=== PATIENT | female | born 1945 | race Caucasian/White ===

== ENCOUNTER 2018-03-03 11:41 | Emergency (ER) | payer MEDICARE ==
[2018-03-03] MEDS ORDERED: Aspirin 81 mg CHEW TAB* 81 MG TAB.CHEW PO ONE (12:12)
--- NOTE | 2018-03-03 12:14 | ED ---
HPI Chest Pain - HPI Summary HPI Summary: This patient is a 73 year old F presenting to [facility] accompanied by her daughter with a chief complaint of achy and intermittently sharp chest pain since 09:00 this morning. Pain is 4/10 in severity. Reports recent cold with chills, body aches, and nonproductive cough. Patient denies fever and lower extremity pain and swelling. Denies history of similar pain. Patient took 81mg of ASA this morning. - History of Current Complaint Chief Complaint: EDChestPainROMI Time Seen by Provider: 03/03/18 12:05 Hx Obtained From: Patient Onset/Duration: Started Hours Ago, Still Present Time of Onset: 09:00 Timing: Constant Current Severity: Moderate Pain Intensity: 4 Pain Scale Used: 0-10 Numeric Chest Pain Radiates: No Character: Dull/Aching, Sharp/Stabbing Aggravating Factor(s): Nothing Alleviating Factor(s): Nothing Associated Signs and Symptoms: Positive: Chest Pain, Chills, Nonproductive Cough. Negative: Fever, Calf Pain/Swelling - Allergy/Home Medications Allergies/Adverse Reactions: Allergies Allergy/AdvReac Type Severity Reaction Status Date / Time No Known Allergies Allergy Verified 03/03/18 11:47 Home Medications: Home Medications Acyclovir* [Zovirax 400 MG TAB*] 400 mg PO TID PRN 03/03/18 [History Confirmed 03/03/18] Albuterol HFA INHALER* [Ventolin HFA Inhaler*] 2 puff INH Q4H PRN 03/03/18 [ History Confirmed 03/03/18] Anastrozole (NF) [Arimidex (NF)] 1 mg PO DAILY 03/03/18 [History Confirmed 03/03] Aspirin [Adult Aspirin] 81 mg PO DAILY 03/03/18 [History Confirmed 03/03/18] Atorvastatin* [Lipitor 80 MG*] 80 mg PO DAILY 03/03/18 [History Confirmed ] Ergocalciferol CAP* [Drisdol CAP*] 50,000 unit PO Q7D 03/03/18 [History Confirmed 03/03/18] Lisinopril 10 mg PO DAILY 03/03/18 [History Confirmed 03/03/18] Propylene Glycol/Peg 400/Pf [Systane 0.3-0.4% Eye Drop] 1 drop BOTH EYES BID PRN 03/03/18 [History Confirmed 03/03/18] Ranitidine TAB (NF) [Zantac TAB (NF)] 150 mg PO BID 03/03/18 [History Confirmed 03/03/18] Temazepam 15 mg PO BEDTIME 03/03/18 [History Confirmed 03/03/18] Ubidecarenone [Coenzyme Q-10] 200 mg PO DAILY 03/03/18 [History Confirmed ] diphenhydrAMINE HCl [Benadryl Allergy] 25 - 50 mg PO Q4HR PRN 03/03/18 [History Confirmed 03/03/18] PMH/Surg Hx/FS Hx/Imm Hx Endocrine/Hematology History: Denies: Hx Diabetes Cardiovascular History: Reports: Hx Hypercholesterolemia, Hx Hypertension, Other Cardiovascular Problems/Disorders - PVCs - Cancer History Cancer Type, Location and Year: breast CA Hx Chemotherapy: No Hx Radiation Therapy: Yes - Surgical History Surgery Procedure, Year, and Place: LEFT LUMPECTOMY. appendectomy Infectious Disease History: No Infectious Disease History: Denies: Traveled Outside the [place] in Last 30 Days - Family History Known Family History: Positive: Hypertension - Social History Occupation: Retired Alcohol Use: Rare Substance Use Type: Reports: None Smoking Status (MU): Never Smoked Tobacco Review of Systems Positive: Chills. Negative: Fever Positive: Chest Pain Positive: Cough Positive: Myalgia. Negative: Edema All Other Systems Reviewed And Are Negative: Yes Physical Exam - Summary Physical Exam Summary: VITAL SIGNS: Reviewed. GENERAL: Patient is a well-developed and nourished female who is lying comfortable in the stretcher. Patient is not in any acute respiratory distress. HEAD AND FACE: No signs of trauma. No ecchymosis, hematomas or skull depressions. No sinus tenderness. EYES: PERRLA, EOMI x 2, No injected conjunctiva, no nystagmus. EARS: Hearing grossly intact. Ear canals and tympanic membranes are within normal limits. MOUTH: Oropharynx within normal limits. NECK: Supple, trachea is midline, no adenopathy, no JVD, no carotid bruit, no c- spine tenderness, neck with full ROM. CHEST: Symmetric, no tenderness at palpation LUNGS: Clear to auscultation bilaterally. No wheezing or crackles. CVS: Regular rate and rhythm, S1 and S2 present, no murmurs or gallops appreciated. ABDOMEN: Soft, non-tender. No signs of distention. No rebound no guarding, and no masses palpated. Bowel sounds are normal. EXTREMITIES: FROM in all major joints, no edema, no cyanosis or clubbing. NEURO: Alert and oriented x 3. No acute neurological deficits. Speech is normal and follows commands. SKIN: Dry and warm Triage Information Reviewed: Yes Vital Signs On Initial Exam: Initial Vitals Temp Pulse Resp BP Pulse Ox 98.6 F 102 14 157/76 97 03/03/18 11:43 03/03/18 11:43 03/03/18 11:43 03/03/18 11:43 03/03/18 11:43 Vital Signs Reviewed: Yes Diagnostics - Vital Signs Vital Signs Temp Pulse Resp BP Pulse Ox 03/03/18 11:43 98.6 F 102 14 157/76 97 - Laboratory Result Diagrams: 03/03/18 12:14 03/03/18 12:14 Lab Statement: Any lab studies that have been ordered have been reviewed, and results considered in the medical decision making process. - Radiology CXR Radiology Interpretation Completed By: Radiologist - HYPERINFLATION. NO ACTIVE CARDIOPULMONARY DISEASE. ED Physician has reviewed this report. - EKG 1155 Cardiac Rate: NL - 93 BPM EKG Rhythm: Sinus Rhythm EKG Interpretation: no ST elevations Chest Pain Course/Dx - Course Assessment/Plan: This patient is a 73 year old F presenting to [facility] accompanied by her daughter with a chief complaint of achy and intermittently sharp chest pain since 09:00 this morning. Pain is 4/10 in severity. Reports recent cold with chills, body aches, and nonproductive cough. Patient denies fever and lower extremity pain and swelling. Denies history of similar pain. Patient took 81mg of ASA this morning. Blood work without any significant abnormality except potassium level of 3.4, magnesium is 1.5 and glucose is 112. Troponin is 0.01. In the ED course the patient was given aspirin, the patient was given potassium for the hypokalemia and magnesium for the hypomagnesemia. Since arrival the patient has remained asymptomatic. The patient denies any chest pain. Denies any shortness of breath or palpitations. I have no suspicion for PE since the patient is not hypoxic or tachycardic. Also the patient is asymptomatic. Second troponin is also 0.01. Heart score is equal to 3. I discussed all the findings and test results with the patient. Patient was instructed to return to the emergency room immediately if any of the symptoms return or worsens. Plan of care was discussed with the patient and understands and agrees. All questions were answered at patient satisfaction. There were no further complaints or concerns. Lung exam before discharge: CTA B /L. Good air exchange. No wheezing or crackles heard. CVS: S1 and S2 present. No murmurs appreciated. Patient is alert and oriented x 3. Patient is hemodynamically stable. Patient will be discharged home with follow up PCP in the next 2-3 days - Chest Pain Differential Diagnosis/HQI/PQRI: Acute LA, ACS, Angina, CHF, Chest Wall, GI Disease, Lower Respiratory Infection - Diagnoses Provider Diagnoses: Atypical chest pain Discharge - Sign-Out/Discharge Documenting (check all that apply): Patient Departure - discharge - Discharge Plan Condition: Stable Disposition: HOME Prescriptions: Azithromycin TAB* [Zithromax TAB (Z-TRINA) 250 mg #6 tabs] 250 mg PO DAILY #4 tab Patient Education Materials: Chest Pain (ED) Forms: *Work Release Referrals: Stanley Dillon DO [Primary Care Provider] - 2 Days Additional Instructions: FOLLOW UP WITH YOUR PRIMARY CARE PROVIDER WITHIN ONE WEEK FOR HIGH BLOOD PRESSURE NOTED TODAY. RETURN TO EMERGENCY ROOM FOR ANY WORSENING OR NEW SYMPTOMS. - Billing Disposition and Condition Condition: STABLE Disposition: Home - Attestation Statements Document Initiated by Andrewe: Yes Documenting Scribe: Tiffany Freire Provider For Whom Kendal is Documenting (Include Credential): Ernie Flores MD Scribe Attestation: Tiffany Watt, scribed for Ernie Flores MD on 03/03/18 at 1841. Scribe Documentation Reviewed: Yes Provider Attestation: The documentation as recorded by the Tiffany yi accurately reflects the service I personally performed and the decisions made by me, Ernie Flores MD
[2018-03-03 12:25] LABS: ABS Basophils 0.1 10^3/ul (0-0.2); ABS Eosinophils 0 10^3/ul (0-0.6); ABS Lymphocytes 0.8 10^3/ul (1.0-4.8); ABS Monocytes 0.6 10^3/ul (0-0.8); ABS Neutrophils 8.6 10^3/ul (1.5-7.7); ABS Nucleated RBC 0 10^3/ul; Eosinophil % 0.2 % (0-6); Hematocrit 36 % (35-47); Hemoglobin 12.1 g/dl (12.0-16.0); Lymphocyte % 7.6 % (25-47); Mean Corpuscular HGB Conc 34 g/dl (31-36); Mean Corpuscular Hemoglobin 29 pg (27-31); Mean Corpuscular Volume 86 fL (80-97); Mean Platelet Volume 7.7 um3 (7.4-10.4); Nucleated Red Blood Cells % 0; Platelet Count 214 10^3/ul (150-450); Red Blood Count 4.21 10^6/ul (4.00-5.40); Red Cell Distribution Width 14 % (10.5-15)
[2018-03-03 12:33] LABS: INR 0.98 (0.77-1.02)
[2018-03-03 12:43] LABS: EGFR Non-African American 100.2 (>60)
--- NOTE | 2018-03-03 13:08 | RAD ---
HISTORY: CP COMPARISONS: None VIEWS: 2: Frontal and lateral views of the chest. FINDINGS: CARDIOMEDIASTINAL SILHOUETTE: The cardiomediastinal silhouette is normal. WESLY: The wesly are normal. PLEURA: The costophrenic angles are sharp. No pleural abnormalities are noted. LUNG PARENCHYMA: There is hyperinflation with flattening of the diaphragm and expansion of the AP diameter of the chest. ABDOMEN: The upper abdomen is clear. There is no subphrenic gas. BONES AND SOFT TISSUES: No bone or soft tissue abnormalities are noted. Surgical clips are noted overlying the left chest. OTHER: None. IMPRESSION: HYPERINFLATION. NO ACTIVE CARDIOPULMONARY DISEASE.
[2018-03-03] MEDS ORDERED: Potassium Chlor TAB* 20 MEQ TAB.ER PO ONE (14:46)
[2018-03-03] MEDS ORDERED: Magnesium Oxide TAB* 400 MG PO ONE (15:09)
[2018-03-03 16:06] LABS: Urine Appearance Clear; Urine Blood 2+ (Negative); Urine Color Yellow; Urine Ketones Negative (Negative); Urine Protein Negative (Negative); Urine Red Blood Cell 2+(6-10/hpf) (Absent); Urine Specific Gravity 1.011 (1.010-1.030); Urine Urobilinogen Negative (Negative); Urine White Blood Cell Trace(0-5/hpf) (Absent)
[2018-03-03] MEDS ORDERED: Acetaminophen TAB* 325 MG PO ONE (16:33)
[2018-03-03] MEDS ORDERED: Azithromycin TAB* 250 MG PO ONE (16:34)
[2018-03-03 16:41] VITALS: BP 130/77
== END 2018-03-03 16:46 | disposition home or self-care (01) ==
LOC: ED 11:41
DX: R07.89 Other chest pain (principal); E83.42 Hypomagnesemia; E87.6 Hypokalemia; I10 Essential (primary) hypertension; E78.00 Pure hypercholesterolemia, unspecified; Z79.899 Other long term (current) drug therapy
CPT/HCPCS: 36415; 71046; 80053; 81003; 81015; 82550; 82553; 83605; 83735; 83880; 84443; 84484; 85025; 85610; 85730; 86140; 87086; 93005; 99284; A9270-GY

== ENCOUNTER 2018-05-30 07:50 | Emergency (ER) | payer MEDICARE ==
--- OUTSIDE RECORDS SUMMARY | 2018-05-30 07:56 | XMS REPORT | Continuity of Care Document ---
:1945 External Reference #:[id number] Author Name Stanley Dillon D.O. Address [address] [place] [address] Care Team Providers Name Role Phone HCP/LW on file Primary Care Physician Unavailable Payers Type Date Identification Numbers Payment Provider Subscriber Policy Number: [id number] [employer] Ppo Greta Hurtado Group Number: [id number] [address] PayID: [id number] [place] [address] Advance Directives Description No Information Available Problems Date Description Provider Status Onset: 08/31/2017 Genital herpes simplex Stanley Dillon D.O. Active Onset: 08/31/2017 Insomnia Stanley Dillon D.O. Active Onset: 08/31/2017 Chronic obstructive lung disease Stanley Dillon D.O. Active Onset: 08/31/2017 Personal history of primary malignant Stanley Dillon D.O. Active neoplasm of breast Onset: 08/31/2017 Essential hypertension Stanley Dillon D.O. Active Onset: 12/12/2017 Hyperlipidemia Delma Chowdhury PA Active Onset: 12/26/2017 Benign hematuria Delma Chowdhury PA Active Onset: 01/04/2018 Microscopic hematuria Delma Chowdhury PA Active Family History Date Family Member(s) Problem(s) Comments Father Asthma : (1993) Father due to Heart w/Pulmonary Edema (age 73 Years) Problems : (1999) Mother due to Esophagus (age 78 Years) Cancer Siblings 3 Brothers Siblings 2 Sisters First Brother Alcoholism First Brother Obesity First Brother Glaucoma Maternal Grandmother Stomach Cancer Social History Type Date Description Comments Sex Unknown Education Highest Level Completed College Marital Status 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 Abuse No Concern Of Abuse Tobacco Use Start: Unknown Denies Cigarette Use ETOH Use Rarely consumes alcohol Recreational Drug Use Denies Drug Use Tobacco Use Start: Unknown Non Smoker Smoking Status Reviewed: 05/24/18 Non Smoker Sun Exposure Does not use sunscreen Seat Belt/Car Seat Seat Belt Use - Yes Smoke Alarms Yes smoke alarm Currently Active Patient is currently not sexually active Age [address] [place] 22 Years Old # Partners in a Lifetime Partners 1-5 Additional Info Sexual preference is men Allergies, Adverse Reactions, Alerts Description No Known Drug Allergies Medications Medication Date Status Form Strength Qnty SIG Indications Ordering Provider Omeprazole 04/16/ Active Capsules 20mg 90cap 1 by mouth K21.[address] every day Mansoor Angel Bevespi 04/16/ Active Aerosol 9-4.8mcg/ 32.1g Inhale 2 Sopchak, Aerosphere 2018 Act m puffs by Stanley, mouth 2 times D.O. per day Atorvastatin 08/30/ Active Tablets 80mg 90tab 1 by mouth E78.2 [place], Calcium 2017 s every day Mansoor Angel Coenzyme Q-10 08/30/ Active Capsules 200mg qd Unknown 2017 Lisinopril 08/30/ Active Tablets 10mg 30tab 1 by mouth Silcoff, 2018 s every day Haleigh Bishop Vitamin D 08/30/ Active Capsules [id number] 12cap 1 cap by Elias, (Ergocalcifero 2017 s mouth weekly guillermo Bishop M.D. Systane 08/30/ Active Solution 0.4-0.3% prn use Unknown 2017 Benadryl 08/30/ Active Tablets 25mg 1-2 tab by Unknown Allergy 2018 mouth every 4 hours as needed seasonal allergies Acyclovir 08/30/ Active Tablets 400mg 14tab take 1 tablet A60.00 Santana, 2017 s by mouth 3 Stanley, times per day D.O. for 7 days as needed for outbreaks Ventolin HFA 08/30/ Active Aerosol 108(90Bas inhale 2 Unknown 2017 e) puffs by mcg/Act mouth every 4 hours as needed for bronchospasm Temazepam 08/30/ Active Capsules 15mg 90cap take one G47.00 Sopsamantha, 2017 s capsule by Stanley, mouth at D.O. bedtime as needed forsleep maximum daily dose=1 capsule Anastrozole 12/31/ Active Tablets 1mg 90tab 1 by mouth [email or web address] s every day for Stanley, breast cancer D.O. Azithromycin 03/03/ Hx Tablets 250mg 4tabs Take One Unknown 2018 - Tablet By 03/07/ Mouth Every 2017 Day Ranitidine HCL 08/31/ Hx Capsules 150mg 180ca 1 tab by K21.9 [email or web address] - ps mouth twice a Stanley, 04/16/ day as needed D.O. 2017 for heartburn Omeprazole 08/30/ Hx Capsules 20mg 1 by mouth Unknown 2017 - DR every day 2017 Aspirin Adult 08/30/ Hx Tablets DR 81mg 1 by mouth Unknown Low Strength 2018 - every day 2017 Immunizations CPT Code Status Date Vaccine Lot # [id number] Given 03/15/2018 Influenza Vaccine, Inactivated, Subunit, [id number] Adjuvanted, For [facility] [address] Given 01/04/2018 Adacel or Boostrix, TDaP [id number] Vital Signs Date Vital Result Comment 05/24/2018 4:45pm BP Systolic 142 mmHg BP Diastolic 86 mmHg Weight 135.00 lb 03/06/2018 3:12pm BP Systolic 142 mmHg BP Diastolic 70 mmHg Body Temperature 97.8 F Weight 133.00 lb 01/04/2018 11:46am BP Systolic 120 mmHg BP Diastolic 74 mmHg 12/12/2017 12:03pm BP Systolic 116 mmHg BP Diastolic 70 mmHg Weight 131.00 lb 08/31/2017 2:27pm BP Systolic 124 mmHg BP Diastolic 76 mmHg Height 65 inches 5'5" Weight 127.00 lb BMI (Body Mass Index) 21.1 kg/m2 Results Test Date Facility Test Result H/L Range Note Urine Culture And 03/03/2018 [facility] Urine Culture SEE RESULT 1 Sensitivities [phone] BELOW Laboratory test 03/03/2018 [facility] C Reactive 76.20 mg/L High < 8.01 finding [phone] Protein Urinalysis Profile 03/03/2018 [facility] Urine Color Yellow [phone] Urine Appearance Clear Urine Specific Floweree 1.011 N 1.010-1.030 Urine pH 6.0 N 5-9 Urine Urobilinogen Negative Negative Urine Ketones Negative Negative Urine Protein Negative Negative Urine Leukocytes 1+ Abnormal Negative Urine Blood 2+ Abnormal Negative Urine Nitrite Negative Negative Urine Bilirubin Negative Negative Urine Glucose Negative Negative Urine White Blood Cell Trace(0-5/hpf) Absent Urine Red Blood Cell 2+(6-10/hpf) Abnormal Absent Urine Bacteria Absent Absent Laboratory test 03/03/2018 [facility] TSH (Thyroid 0.45 mcIU/mL N 0.34-5.60 finding [phone] Stim Horm) CKMB 03/03/2018 [facility] CKMB ng/mL 1.4 ng/mL N 0.6-6.3 [phone] Laboratory test 03/03/2018 [facility] Magnesium 1.5 mg/dL Low 1.9- 2.7 finding [phone] Creatine Kinase(CK) 68 U/L N 10-223 Troponin-I (TnI) 0.00 ng/mL <0.04 Comp Metabolic Panel 03/03/2018 [facility] Sodium 139 mmol/L N 135- 145 [phone] Potassium 3.4 mmol/L Low 3.5-5.0 Chloride 102 mmol/L N 101-111 Co2 Carbon Dioxide 28 mmol/L N 22-32 Anion Gap 9 mmol/L N 2-11 Glucose 112 mg/dL High 70-100 Blood Urea Nitrogen 10 mg/dL N 6-24 Creatinine 0.59 mg/dL N 0.51-0.95 BUN/Creatinine Ratio 16.9 N 8-20 Calcium 9.5 mg/dL N 8.6-10.3 Total Protein 6.5 g/dL N 6.4-8.9 Albumin 4.1 g/dL N 3.2-5.2 Globulin 2.4 g/dL N 2-4 Albumin/Globulin Ratio 1.7 N 1-3 Total Bilirubin 0.60 mg/dL N 0.2-1.0 Alkaline Phosphatase 82 U/L N 34-104 Alt 16 U/L N 7-52 Ast 15 U/L N 13-39 Egfr Non- 100.2 >60 Egfr 121.2 >60 2 Laboratory test 03/03/2018 [facility] B-Type Natriuretic 67 pg/mL 3 finding [phone] Peptide BNP CBC Auto Diff 03/03/2018 [facility] White Blood Count 10.0 10^3/uL N 3.5-10. [phone] Red Blood Count 4.21 10^6/uL N 4.00-5.40 Hemoglobin 12.1 g/dL N 12.0-16.0 Hematocrit 36 % N 35-47 Mean Corpuscular Volume 86 fL N 80-97 Mean Corpuscular Hemoglobin 29 pg N 27-31 Mean Corpuscular HGB Conc 34 g/dL N 31-36 Red Cell Distribution Width 14 % N 10.5-15 Platelet Count 214 10^3/uL N 150-450 Mean Platelet Volume 7.7 um3 N 7.4-10.4 Abs Neutrophils 8.6 10^3/uL High 1.5-7.7 Abs Lymphocytes 0.8 10^3/uL Low 1.0-4.8 Abs Monocytes 0.6 10^3/uL N 0-0.8 Abs Eosinophils 0 10^3/uL N 0-0.6 Abs Basophils 0.1 10^3/uL N 0-0.2 Abs Nucleated RBC 0 10^3/uL Granulocyte % 85.9 % High 38-83 Lymphocyte % 7.6 % Low 25-47 Monocyte % 5.7 % N 0-7 Eosinophil % 0.2 % N 0-6 Basophil % 0.6 % N 0-2 Nucleated Red Blood Cells % 0 Laboratory test 03/03/2018 [facility] Partial 29.4 seconds N 26.0- 36.3 finding [phone] Thrombo Time PTT Inr/Protime 03/03/2018 [facility] Inr 0.98 N 0.77-1.02 [phone] Laboratory test 03/03/2018 [facility] Lactic Acid 1.4 mmol/L N 0.5- 2.0 4 finding [phone] Laboratory test 03/03/2018 [facility] Troponin-I 0.00 ng/mL <0.04 finding [phone] (TnI) Laboratory test 01/04/2018 [facility] Cytology SEE RESULT 5 finding [phone] BELOW Urine Culture And 12/20/2017 [facility] Urine Culture SEE RESULT 6 Sensitivities [phone] BELOW Urinalysis Profile 12/20/2017 [facility] Urine Color Yellow [phone] Urine Appearance Clear Urine Specific Floweree 1.021 N 1.010-1.030 Urine pH 5.0 N 5-9 Urine Urobilinogen Negative Negative Urine Ketones Negative Negative Urine Protein Negative Negative Urine Leukocytes 2+ Abnormal Negative Urine Blood 1+ Abnormal Negative Urine Nitrite Negative Negative Urine Bilirubin Negative Negative Urine Glucose Negative Negative Urine White Blood Cell 2+(11-20/hpf) Abnormal Absent Urine Red Blood Cell Trace(0-2/hpf) Absent Urine Bacteria Absent Absent Urine Calcium Oxalate Cryst Present Abnormal Absent Urinalysis Profile 12/18/2017 [facility] Urine Color Yellow [phone] Urine Appearance Clear Urine Specific Floweree 1.016 N 1.010-1.030 Urine pH 5.0 N 5-9 Urine Urobilinogen Negative Negative Urine Ketones Negative Negative Urine Protein Negative Negative Urine Leukocytes 2+ Abnormal Negative Urine Blood 2+ Abnormal Negative Urine Nitrite Negative Negative Urine Bilirubin Negative Negative Urine Glucose Negative Negative Urine White Blood Cell 1+(6-10/hpf) Abnormal Absent Urine Red Blood Cell Trace(0-2/hpf) Absent Urine Bacteria Absent Absent Urine Squamous Epithelial Cell Present Abnormal Absent Comp Metabolic Panel 12/18/2017 [facility] Sodium 141 mmol/L N 135- 145 [phone] Potassium 4.1 mmol/L N 3.5-5.0 Chloride 105 mmol/L N 101-111 Co2 Carbon Dioxide 30 mmol/L N 22-32 Anion Gap 6 mmol/L N 2-11 Glucose 99 mg/dL N 70-100 Blood Urea Nitrogen 14 mg/dL N 6-24 Creatinine 0.63 mg/dL N 0.51-0.95 BUN/Creatinine Ratio 22.2 High 8-20 Calcium 9.4 mg/dL N 8.6-10.3 Total Protein 6.2 g/dL Low 6.4-8.9 Albumin 4.1 g/dL N 3.2-5.2 Globulin 2.1 g/dL N 2-4 Albumin/Globulin Ratio 2.0 N 1-3 Total Bilirubin 0.40 mg/dL N 0.2-1.0 Alkaline Phosphatase 65 U/L N 34-104 Alt 9 U/L N 7-52 Ast 13 U/L N 13-39 Egfr Non- 93.2 >60 Egfr 112.7 >60 7 Lipid Profile (Trig/Chol/HDL) 12/18/2017 [facility] Triglycerides 111 mg/dL 8 [phone] Cholesterol 195 mg/dL 9 HDL Cholesterol 80.2 mg/dL 10 LDL Cholesterol 93 mg/dL 11 Laboratory test 12/18/2017 [facility] Hemoglobin A1c 5.5 % N 4.0-5.6 12 finding [phone] (Glyco HGB) Hepatitis C Antibody Nonreactive Nonreactive Urine Culture And 12/18/2017 [facility] Urine Culture SEE RESULT 13 Sensitivities [phone] BELOW Xray 12/18/2017 [facility] X-Ray, Chest, <pending> 14 2 Views 1 SEE RESULT BELOW Name: GRETA HURTADO : [address]: Ernie Flores MD Acct: [id number] Unit: [id number] AGE: 73 Location: ED Re03/03/18 SEX: F Status: DEP ER SPEC: [id number] ANAI: 03/03/[address] [facility] [address]: Ernie Flores MD REQ: [id number] RECD: 03/03/18 STATUS: LORENA PEREZ DR: Stanley Dillon DO _ SOURCE: URINE SPDESC: ORDERED: Urine Culture Procedure Result Reported Site Urine Culture Final 03/05/18- 830 ML No growth of clinically significant organisms * ML - Main Lab . END OF REPORT DEPARTMENT OF PATHOLOGY, [address] [place] [address] Dheeraj Sandoval M.D. Director [facility] # [id number] 2 Because ethnic data is not always readily available, this report includes an eGFR for both -Americans and non- Americans. The National Kidney Disease Education Program (NKDEP) does not endorse the use of the MDRD equation for patients that are not between the ages of 18 and 70, are , have extremes of body size, muscle mass, or nutritional status, or are non- or non-. According to the National Kidney Foundation, irrespective of diagnosis, the stage of the disease is based on the level of kidney function: Stage Description GFR(mL/min/1.73 m(2)) 1 Kidney damage with normal or decreased GFR 90 2 Kidney damage with mild decrease in GFR 60-89 3 Moderate decrease in GFR 30-59 4 Severe decrease in GFR 15-29 5 Kidney failure <15 (or dialysis) 3 >100 to <200 pg/mL: likely compensated congestive heart failure (CHF) 200 to 400 pg/mL: likely moderate CHF >400 pg/mL: likely moderate to severe CHF 4 [place] Severe Sepsis and Septic Shock Management Bundle Measure requires all lactic acids initially measuring >2.0 mmol/L be repeated. 5 SEE RESULT BELOW Name: GRETA HURTADO : [address]: Delma DWYER Acct: [id number] Unit: [id number] AGE: 72 Location: [facility] Re01/04/18 SEX: F Status: REG REF SPEC: [id number] ANAI: 01/04/18-[address] [facility] [address]: Delma DWYER REQ: [id number] RECD: 01/04/189472 STATUS: SOUT _ ORDERED: TP IMAGE ANALYS, HPV/Thin Prep COMMENTS: [id number] Negative for Intraepithelial lesion or Malignancy Date Time Test Result Flag (u) Normal Range 01/04/18 1236 @ HPV RNA Negative Negative @ @ The high-risk HPV types detected by the assay include: 16, @ 18, 31, 33, 35, 39, 45, 51, 52, 56, 58, 59, 66, and 68. A. Ectocervical/Endocervical Specimen Adequacy: Satisfactory of evaluation Transformation zone component cannot be definitely identified due to presence of atrophy or other hormonal changes Predominance of white blood cells Patient Information: HPV: High risk HPV RNA testing regardless of pap results. Actual Specimen Date: 01/04/18 Spec Date if unknown: >10 yrs ?: N Post Menopausal?: Y Hysterectomy?: N Previous Abnormal Pap Smears?:Y If Yes, enter Diagnosis: HPV Signed by and Reported on: PRAFUL Ovalle(ASCP) 1895 This Pap test was evaluated with the assistance of the Tu Closet Mi ClosetPrep Test Imaging System. Due to cytologic findings at the replenishment associate microscope, comprehensive manual rescreening by a Stoper may be required. The Pap Smear is a screening test designed to aid in the detection of premalignant and malignant conditions of the uterine cervix. It is not a diagnostic procedure and should not be used as the sole means of detecting cervical cancer. Both false- positive and false- negative reports do occur. Depending on your risk status, a Pap smear should be obtained and evaluated every 1-3 years. END OF REPORT DEPARTMENT OF PATHOLOGY, [address] [place] [address] Dheeraj Sandoval M.D. Director [facility] # [id number] 6 SEE RESULT BELOW Name: GRETA HURTADO : [address]: Delma DWYER Acct: [id number] Unit: [id number] AGE: 72 Location: [facility] Re12/22/17 SEX: F Status: REG REF SPEC: [id number] ANAI: 12/20/[address] [facility] [address]: Delma DWYER REQ: [id number] RECD: 12/22/17 STATUS: COMP _ SOURCE: URINE SPDESC: ORDERED: Urine Culture COMMENTS: [id number] Procedure Result Reported Site Urine Culture Final 12/23/17- 1414 ML No growth of clinically significant organisms * ML - Main Lab . END OF REPORT DEPARTMENT OF PATHOLOGY, [address] [place] [address] Dheeraj Sandoval M.D. Director [facility] # [id number] 7 Because ethnic data is not always readily available, this report includes an eGFR for both -Americans and non- Americans. The National Kidney Disease Education Program (NKDEP) does not endorse the use of the MDRD equation for patients that are not between the ages of 18 and 70, are , have extremes of body size, muscle mass, or nutritional status, or are non- or non-. According to the National Kidney Foundation, irrespective of diagnosis, the stage of the disease is based on the level of kidney function: Stage Description GFR(mL/min/1.73 m(2)) 1 Kidney damage with normal or decreased GFR 90 2 Kidney damage with mild decrease in GFR 60-89 3 Moderate decrease in GFR 30-59 4 Severe decrease in GFR 15-29 5 Kidney failure <15 (or dialysis) 8 Desirable: <150 Borderline High: 150-199 High: 200-499 Very High: >500 9 Desirable: <200 Borderline High: 200-239 High: >239 10 Low: <40 Desirable: 40-60 High: >60 11 Desirable: <100 Near Optimal: 100-129 Borderline High: 130-159 High: 160-189 Very High: >189 12 Therapeutic target for the treatment of diabetes mellitus patients is <7% HBA1C, and in selective patients <6.0%. Please refer to [place] [employer] diabetic care guidelines for further information. 13 SEE RESULT BELOW Name: GRETA HURTADO : [address]: Delma DWYER Acct: [id number] Unit: [id number] AGE: 72 Location: [facility] Re12/18/17 SEX: F Status: REG REF SPEC: [id number] ANAI: 12/18/[address]: Delma DWYER REQ: [id number] RECD: 12/18/17 STATUS: COMP _ SOURCE: URINE SPDESC: ORDERED: Urine Culture Procedure Result Reported Site Urine Culture Final 12/19/17- 1355 ML No growth of clinically significant organisms * ML - Main Lab . END OF REPORT DEPARTMENT OF PATHOLOGY, [address] [place] [address] Dheeraj Sandoval M.D. Director [facility] # [id number] 14 normal appearing lungs and heart Procedures Date Code Description Status 05/24/2018 50243 Omt 3 To 4 Body Regions Involved Completed 01/04/2018 00972 Destruction Of Skin Lesions Up To 14 Flat Completed Warts/Molluscum Contag 12/18/2017 61276 X-Ray Chest 2 V Completed 11/24/2017 18583641 Mammogram Completed 06/05/2014 87637640 Colonoscopy Completed Encounters Type Date Location Provider Dx Diagnosis Office Visit 04/16/2018 Main Office Stanley Dillon, K21.9 Gastro- esophageal 3:30p D.O. 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 Office Visit 03/06/2018 2:50p Main Office Delma Chowdhury J06.9 Acute upper PA respiratory infection, unspecified R07.9 Chest pain, unspecified Office Visit 01/04/2018 11:45a Main Office Delma Chowdhury PA I10 Essential (primary) hypertension Z12.4 Encounter for screening for malignant neoplasm of cervix B07.9 Viral wart, unspecified R31.1 Benign essential microscopic hematuria Z23 Encounter for immunization Z41.8 Encntr for oth proc for purpose oth [facility] Office Visit 12/12/2017 11:45a Main Office Delma Chowdhury PA Z85.3 Personal history of malignant neoplasm of breast I10 Essential (primary) hypertension E78.5 Hyperlipidemia, unspecified J44.9 Chronic obstructive pulmonary disease, unspecified L91.8 Other hypertrophic disorders of the skin Z85.828 Personal history of other malignant neoplasm of skin Office Visit 08/31/2017 2:00p Main Office Stanley Dillon, A60.00 Herpesviral D.O. infection of urogenital system, unspecified C44.310 Basal cell carcinoma of skin of unspecified parts of face K21.9 Gastro-esophageal reflux disease without esophagitis G47.00 Insomnia, unspecified H25.89 Other age-related cataract J44.9 Chronic obstructive pulmonary disease, unspecified Z85.3 Personal history of malignant neoplasm of breast I10 Essential (primary) hypertension Z00.01 Encounter for general adult medical exam w abnormal findings Z71.89 Other specified counseling Plan of Treatment No Information Available
[2018-05-30 08:06] VITALS: BP 143/75
[2018-05-30] MEDS ORDERED: Acetaminophen TAB* 325 MG PO ONE (08:33)
--- NOTE | 2018-05-30 09:50 | ED ---
Respiratory - HPI Summary HPI Summary: 73 yo WF presents with cough with yellow sputum x 3-4 days but has had URI sx for at least 1 week and worsening - History of Current Complaint Chief Complaint: UCRespiratory Stated Complaint: COUGH FEVER CHEST CONGESTION Time Seen by Provider: 05/30/18 08:08 Hx Obtained From: Patient Onset/Duration: Lasting Days, Lasting Weeks, Still Present Initial Severity: Moderate Current Severity: Moderate Pain Intensity: 6 Character: Cough (Nonproductive) Sputum Amount: Moderate Sputum Color: Yellow Aggravating Factor(s): URI Alleviating Factor(s): Nothing - Allergy/Home Medications Allergies/Adverse Reactions: Allergies Allergy/AdvReac Type Severity Reaction Status Date / Time No Known Allergies Allergy Verified 05/30/18 08:06 Home Medications: Home Medications Ibuprofen 400 mg PO ONCE PRN 05/30/18 [History Confirmed 05/30/18] Magnesium 1 tab PO DAILY 05/30/18 [History Confirmed 05/30/18] Omeprazole 20 mg PO DAILY 05/30/18 [History Confirmed 05/30/18] PMH/Surg Hx/FS Hx/Imm Hx Endocrine/Hematology History: Denies: Hx Diabetes Cardiovascular History: Reports: Hx Hypercholesterolemia, Hx Hypertension, Other Cardiovascular Problems/Disorders - PVCs Respiratory History: Reports: Hx Chronic Obstructive Pulmonary Disease (COPD) - was dx in [place], no psych rn - Cancer History Cancer Type, Location and Year: breast CA Hx Chemotherapy: No Hx Radiation Therapy: Yes - Surgical History Surgery Procedure, Year, and Place: LEFT LUMPECTOMY. appendectomy Infectious Disease History: No Infectious Disease History: Denies: Traveled Outside the [place] in Last 30 Days - Family History Known Family History: Positive: Hypertension - Social History Alcohol Use: Rare Substance Use Type: Reports: None Smoking Status (MU): Never Smoked Tobacco Review of Systems Positive: Fever, Chills Eyes: Negative ENT: Negative Cardiovascular: Negative Positive: Shortness Of Breath, Cough Gastrointestinal: Negative Genitourinary: Negative Musculoskeletal: Negative Skin: Negative Neurological: Negative Psychological: Normal All Other Systems Reviewed And Are Negative: Yes Physical Exam - Summary Physical Exam Summary: Vital Signs Reviewed: Yes Skin: Positive: Warm Head/Face: Positive: Normal Head/Face Inspection Eyes: Positive: Normal ENT: Positive: Normal ENT inspection Neck: Positive: Supple Respiratory/Lung Sounds: Positive: mild diffuse exp wheezes and crackles Cardiovascular: Positive: Normal, RRR, S1, S2 Abdomen Description: Positive: Nontender Musculoskeletal: Positive: Normal Neurological: Positive: Normal Psychiatric: Positive: Normal, Affect/Mood Appropriate Vital Signs On Initial Exam: Initial Vitals Temp Pulse Resp BP Pulse Ox 38.1 C 112 16 143/75 96 05/30/18 07:58 05/30/18 07:58 05/30/18 07:58 05/30/18 07:58 05/30/18 07:58 Diagnostics - Vital Signs Vital Signs Temp Pulse Resp BP Pulse Ox 05/30/18 07:58 38.1 C 112 16 143/75 96 - Laboratory Lab Results: Lab Results 05/30/18 05/30/18 Range/Units 08:22 08:28 Influenza A (Rapid) Negative (Negative) Influenza B (Rapid) Negative (Negative) Group A Strep Rapid Negative (Negative) Lab Statement: Any lab studies that have been ordered have been reviewed, and results considered in the medical decision making process. Disposition - Course Assessment/Plan: CXR- RLL infiltrate, rad read- "small CHARAN infiltrate"-. PO ceftin 500 BID x 7 days, prednisone 10 mg QD x 5days - Diagnoses Provider Diagnoses: PNA (pneumonia) Discharge - Sign-Out/Discharge Documenting (check all that apply): Patient Departure All imaging exams completed and their final reports reviewed: Yes - Discharge Plan Condition: Stable Disposition: HOME Prescriptions: Cefuroxime 500 MG(NF) 500 mg PO BID 7 Days #14 tab predniSONE TAB* [Deltasone 10 MG TAB*] 10 mg PO DAILY 5 Days #5 tab Patient Education Materials: Pneumonia (ED) Referrals: Stanley Dillon DO [Primary Care Provider] - - Billing Disposition and Condition Condition: STABLE Disposition: Home
== END 2018-05-30 09:53 | disposition home or self-care (01) ==
LOC: UCEAST 07:50
DX: J18.9 Pneumonia, unspecified organism (principal); I10 Essential (primary) hypertension
CPT/HCPCS: 71046; 87651; 99212; A9270-GY; G0463